=== PATIENT | male | born 1985 | race African-American/Black ===

== ENCOUNTER 2020-05-20 10:39 | Emergency (ER) | payer SELFPAY ==
[~2020-05-20] VITALS: Ht 188 cm; Wt 113.0 kg
[2020-05-20] MEDS ORDERED: DICYCLOMINE 10 MG/5 ML ORAL SYR PO STA (11:03)
[2020-05-20] MEDS ORDERED: MAGNESIUM/ALUMINUM HYDROXIDE/SIMETHICONE 30ML UDC PO STA (11:03)
[2020-05-20 11:45] LABS: BASOPHILS % 0.6 % (0.0-2.0); EOSINOPHILS % 0.7 % (0.0-5.0); HEMATOCRIT. 45.3 % (42.0-52.0); HEMOGLOBIN. 15.5 g/dL (14.0-18.0); MEAN CORPUSCULAR HEMOGLOBIN 31.1 pg (28.0-32.0); MEAN PLATELET VOLUME 8.5 fl (7.4-10.4); MONOCYTES % 8.3 % (2.0-8.0); NEUTROPHILS % 65.4 % (40.0-76.0); PLATELET 231 x1000/uL (130-400); RED BLOOD CELL COUNT 4.98 mill/uL (4.7-6.1); RED CELL DISTRIBUTION WIDTH 13.9 % (11.6-14.6)
[2020-05-20 11:55] LABS: CHLORIDE 104 mEq/L (98-107)
[2020-05-20 12:49] VITALS: BP 122/79
== END 2020-05-20 12:51 | disposition home or self-care (01) ==
LOC: ER 10:39
DX: R10.13 Epigastric pain (principal)
CPT/HCPCS: 36415; 71045; 80053; 85025; 93005; 99285